=== PATIENT | female | born 1985 | race Caucasian/White ===

== ENCOUNTER 2023-08-19 06:32 | Emergency (ER) | payer SELFPAY ==
--- OUTSIDE RECORDS SUMMARY | 2023-08-19 06:35 | XMS REPORT | Continuity of Care Document ---
:1985 Author Organization [facility] t Address [address] [place] [address] [place] [address] Care Team Providers Name Role Phone Pcp, Patient Does Not Have A Primary Care Physician [phone] MAZIN GLYNN Attending Clinician Unavailable MAZIN GLYNN Attending Clinician Unavailable [email or web address] Attending Clinician Unavailable KIRSTIE FOWLER Attending Clinician Unavailable Doctor Unassigned, [place] Attending Clinician Unavailable Lab, Ang - Db Attending Clinician Unavailable Nurse, [facility] Attending Clinician Unavailable Unknown, Attending Attending Clinician Unavailable UNKNOWN, ATTENDING Attending Clinician Unavailable Margaret Leon RN Attending Clinician Unavailable [email or web address] Admitting Clinician Unavailable Payers Payer Name Policy Type Policy Number Effective Date Expiration Date S [id number] SHARED SERVICE 00:00:00 Problems This patient has no known problems. Allergies, Adverse Reactions, Alerts Allergy Allergy Status Severity Reaction(s) Onset Inactive Treating Comm ents Source Name Type Date Date Clinician PENICILL DRUG Active Anaphylaxis Uni vers IN INGREDI 5-16 ity of 00:00: [address] Penicill Propensi Active Swelling Univ ers in ty to 5-16 ity of adverse 00:00: [place] reaction [address] [place] [address] s [place] NO KNOWN Drug Active Univers ALLERGIE Class ity of [facility] Social History Social Habit Start Date Stop Date Quantity Comments Source History of tobacco Cigarette Smoker University [facility] Sexual orientation Univer sity [facility] Exposure to 2023-01-28 2023-02-07 Not sure [facility] SARS-CoV-2 (event) 00:00:00 07:54:00 [facility] Cigarettes smoked 2023-02-07 2023-02-07 Univers ity of current (pack per 00:00:00 00:00:00 [facility] ) - Reported Branch Cigarette 2023-02-07 2023-02-07 University of pack-years 00:00:00 00:00:00 [facility] Tobacco use and 2023-02-07 2023-02-07 Smokeless Universit y of exposure 00:00:00 00:00:00 tobacco non-user [facility] dical [place] Alcohol intake 2023-02-07 2023-02-07 .86 /d University of 00:00:00 00:00:00 [facility] History of Social 2023-02-07 2023-02-07 Univers ity of function 00:00:00 00:00:00 [facility] Sex [birth year] At [birth year] Universit y of 00:00:00 00:00:00 [facility] Smoking Status Start Date Stop Date Source Tobacco smoking [facility] xa consumption unknown Medical Bran ch Ex-smoker 2023-02-07 00:00:00 2023-02-07 [place] 00:00:00 [facility] Medications This patient has no known medications. Vital Signs Vital Name Observation Time Observation Value Comments Source Systolic blood 2023-02-07 13:08:00 112 mm[Hg] Univer sity of pressure [facility] Diastolic blood 2023-02-07 13:08:00 74 mm[Hg] [facility] Heart rate 2023-02-07 13:08:00 83 /min [facility] Body temperature 2023-02-07 13:08:00 36.61 [place] [facility] Respiratory rate 2023-02-07 13:08:00 17 /min [facility] Body height 2023-02-07 13:08:00 [facility].7 [facility] Body weight 2023-02-07 13:08:00 90.311 kg [facility] BMI 2023-02-07 13:08:00 30.27 kg/m2 [facility] Procedures Procedure Date / Time Performed Performing Clinician Sourc e ASSIGNMENT OF BENEFITS 2020-09-19 18:16:59 Doctor Unassigned, No [facility] Encounters Start End Encounter Admission Attending Care Care Encounter Source Date/Time Date/Time Type Type Clinicians Facility Department ID 2024-02-08 2024-02-08 Outpatient R MAZIN GLYNN [facility] B [id number] Univers 08:00:00 08:00:00 MAZIN GLYNN [facility] 2023-07-19 2023-07-19 Outpatient [email or web address] PRIV PRIV [id number] [facility] 00:00:00 00:00:00 [email or web address] [id number] Medic la 2023-02-21 2023-02-21 Patient Doctor JAKOB [id number] Univers 00:00:00 00:00:00 Secure Msg Unassigned, MARLENY [id number] [facility] [id number] [place] [phone] [facility] [address] 2023-02-10 2023-02-10 Telephone Gretta [facility] [id number] Univers 00:00:00 00:00:00 Mazin [place] [id number] it y of [place] [id number] [id number] [facility] [address] 2023-02-08 2023-02-08 Outpatient R MAZIN GLYNN [facility] B [id number] Univers 07:30:00 08:02:03 MAZIN GLYNN [facility] 2023-02-08 2023-02-08 Family Resource Management Specialist Lab, Ang - Db [facility] [id number] Univers 07:30:00 07:45:00 Visit Mazin Glynn [facility] [id number] 0 ity of [place] [id number] [place] SMITHA?BLEA [phone] [address] MEDICAL OFFICE BUILDING 2023-02-07 2023-02-07 Family Resource Management Specialist Lab, Ang - Db [facility] [id number] Univers 09:00:00 09:13:52 Visit SherylMazin orellana [facility] [id number] 0 ity of [place] [id number] [place] SMITHA?BLEA [id number] Ct dical [address] OFFICE [facility] 2023-02-07 2023-02-07 Outpatient R SHERYLSOFIA ORELLANAFITO [facility] B [id number] Univers 08:00:00 08:24:00 GRETTA MAZIN [facility] 2023-02-07 2023-02-07 Office [facility] [id number] Univers 08:00:00 08:24:00 Visit Mazin [place] [id number] it y of WOMEN'S [id number] [place] [facility] [id number] [facility] 134 [place] 2023-01-26 2023-01-26 Outpatient R SHERYLIMAN MAZIN [facility] B [id number] Univers 08:00:00 08:00:00 CRUZBOBBI MAZIN [facility] 2020-09-21 2020-09-21 Patient Doctor JAKOB [id number] Univers 00:00:00 00:00:00 Secure Msg Unassigned, MARLENY [id number] ity of [place] [facility] [id number] [place] [id number] [facility] [address] 2020-09-19 2020-09-19 Nurse Nurse, [facility] 1.2.840.114 [id number] Univers 12:44:42 17:31:42 Visit Unknown, Attending [place] [id number] ity of [place] 4.2.7.2.686 [place] [id number] [facility] [address] 2020-09-19 2020-09-19 Outpatient R UNKNOWN, [facility] [id number] Univers 13:15:00 13:15:00 ATTENDING ity [facility] 2020-09-19 2020-09-19 Outpatient R UNKNOWN, [facility] [id number] Univers 13:00:00 13:00:00 ATTENDING ity [facility] 2020-09-19 2020-09-19 Orders Doctor JAKOB 1.2.840.114 [id number] Univers 00:00:00 00:00:00 Only Unassigned, MARLENY [id number] ity of [place] [facility] 4.2.7.2.686 [place] [phone] [facility] [address] Branch 2020-09-19 2020-09-19 Telephone JAKOB Leon [id number] Univers 00:00:00 00:00:00 Margaret FARMER [id number] it y of HOSPITAL 4.2.7.2.686 [place] [id number] [facility] [address] 2020-09-19 2020-09-19 Letter Doctor JAKOB [id number] [id number] Univers 00:00:00 00:00:00 (Out) Unassigned, MARLENY [id number] ity of [place] [facility]OSPITAL 4.2.7.2.686 [place] [phone] [facility] [address] Results This patient has no known results.
--- NOTE | 2023-08-19 06:48 | EDPHYS ---
Physician Documentation [facility] Name: Giovana Edward Age: 38 yrs Sex: Female : 1985 Arrival Date: 08/19/2023 Time: 06:32 Bed 14 Private MD: ED Physician Rojelio Avilez HPI: 08/19 06:51 This 38 yrs old Female presents to ER via Ambulatory with complaints of Sore Throat. rt 06:51 Patient presents to the ED with 2 days of sore throat. Denies any difficulty rt swallowing. Denies significant cough. Does report a fever, body aches. Denies other acute complaints at this time, symptoms are moderate severity, no other aggravating or elevating factors.. 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 Flu vaccine is not up to date. - Social history:: Smoking status: Reported history of juuling and/or vaping. - Family history:: not pertinent. ROS: 06:51 Cardiovascular: Negative for chest pain, palpitations, and edema, Respiratory: Negative rt for shortness of breath, cough, wheezing, and pleuritic chest pain, Abdomen/GI: Negative for abdominal pain, nausea, vomiting, diarrhea, and constipation, Skin: Negative for injury, rash, and discoloration, Neuro: Negative for headache, weakness, numbness, tingling, and seizure, 06:51 Constitutional: Positive for body aches, fever, 06:51 ENT: Positive for sore throat, Negative for rhinorrhea, Exam: 06:51 Constitutional: This is a well developed, well nourished patient who is awake, alert, rt and in no acute distress. Head/Face: Normocephalic, atraumatic. Chest/axilla: Normal chest wall appearance and motion. Nontender with no deformity. No lesions are appreciated. Cardiovascular: Regular rate and rhythm with a normal S1 and S2. No gallops, murmurs, or rubs. Normal PMI, no JVD. No pulse deficits. Respiratory: Lungs have equal breath sounds bilaterally, clear to auscultation and percussion. No rales, rhonchi or wheezes noted. No increased work of breathing, no retractions or nasal flaring. Abdomen/GI: Soft, non-tender, with normal bowel sounds. No distension or tympany. No guarding or rebound. No evidence of tenderness throughout. Skin: Warm, dry with normal turgor. Normal color with no rashes, no lesions, and no evidence of cellulitis. MS/ Extremity: Pulses equal, no cyanosis. Neurovascular intact. Full, normal range of motion. Neuro: Awake and alert, GCS 15, oriented to person, place, time, and situation. Cranial nerves II-XII grossly intact. Motor strength 5/5 in all extremities. Sensory grossly intact. Cerebellar exam normal. Normal gait. 06:51 ENT: Posterior pharyngeal erythema with 2+ tonsils, uvula is midline. Vital Signs: 06:43 BP 117 / 76; Pulse 102; Resp 20; Temp 99.1; Pulse Ox 98% ; Weight 86.18 kg; Height 5 vc1 ft. 8 in. ; Pain 7/10; 06:43 Body Mass Index 28.89 (86.18 kg, 172.72 cm) vc1 06:43 Pain Scale: Adult vc1 MDM: 06:47 Patient medically screened. rt 06:51 Differential diagnosis: Strep pharyngitis, RPA, FINANCE BUSINESS PARTNER, viral syndrome. Data reviewed: rt vital signs, nurses notes. Test considered but Not performed: Other Details Uvula is midline, tonsils are symmetrical, very low suspicion for peritonsillar abscess, do not suspect retropharyngeal abscess, CT scan is not indicated. Vital signs are stable, after discussion with the patient, will forego testing and treat for strep pharyngitis empirically given clinical presentation and physical exam findings.. Counseling: I had a detailed discussion with the patient and/or guardian regarding the historical points, exam findings, and any diagnostic results supporting the discharge/admit diagnosis, the need for outpatient follow up, to return to the emergency department if symptoms worsen or persist or if there are any questions or concerns that arise at home. Administered Medications: No medications were administered Disposition Summary: 08/19/23 06:48 Discharge Ordered Notes: Location: Home rt Problem: new rt Symptoms: are unchanged rt Condition: Stable rt Diagnosis - Streptococcal tonsillitis rt Followup: rt - With: Private Physician - When: 5 - 6 days - Reason: Discharge Instructions: - Discharge Summary Sheet rt - Tonsillitis rt Forms: - Work release form eb - Medication Reconciliation Form rt - Thank You Letter rt - Antibiotic Education rt - Prescription Opioid Use rt - Patient Portal Instructions rt - Leadership Thank You Letter rt Prescriptions: - Clindamycin HCl 300 mg Oral Capsule - take 1 capsule ORAL route every 6 hours for 10 days; 40 capsule; Refills: 0, rt Product Selection Permitted Signatures: Klaudia Harkins RN RN vc1 Rojelio Avilez MD MD rt
--- NOTE | 2023-08-19 06:48 | ER ---
Nurse's Notes [facility] Name: Giovana Edward Age: 38 yrs Sex: Female : 1985 Arrival Date: 08/19/2023 Time: 06:32 Bed 14 Private MD: Diagnosis: Streptococcal tonsillitis Presentation: 08/19 06:43 Chief complaint: Patient states: I have fever chills, body aches since yesterday. I vc1 think I have strep. Coronavirus screen: Vaccine status: Patient reports being unvaccinated. Client denies travel out of the [place] in the last 14 days. fatigue, fever, muscle pain, sore throat, Client presents with at least one sign or symptom that may indicate coronavirus-19. Ebola Screen: Patient negative for fever greater than or equal to 101.5 degrees Fahrenheit, and additional compatible Ebola Virus Disease symptoms Patient denies exposure to infectious person. Patient denies travel to an Ebola-affected area in the 21 days before illness onset. No symptoms or risks identified at this time. Initial Sepsis Screen: Does the patient meet any 2 criteria? HR > 90 bpm. No. Patient's initial sepsis screen is negative. Does the patient have a suspected source of infection? No. Patient's initial sepsis screen is negative. Risk Assessment: Do you want to hurt yourself or someone else? Patient reports no desire to harm self or others. Onset of symptoms was August 18, 2023. 06:43 Method Of Arrival: Ambulatory vc1 06:43 Acuity: DINA 4 vc1 Triage Assessment: 06:51 General: Appears in no apparent distress. uncomfortable, Behavior is calm, cooperative, vc1 appropriate for age. Pain: Complains of pain in throat and generalized body aches Pain currently is 7 out of 10 on a pain scale. EENT: Reports pain when swallowing. Neuro: No deficits noted. Cardiovascular: No deficits noted. Respiratory: Airway is patent Respiratory effort is even, unlabored, Respiratory pattern is regular, symmetrical. GI: No deficits noted. No signs and/or symptoms were reported involving the gastrointestinal system. : No deficits noted. No signs and/or symptoms were reported regarding the genitourinary system. Derm: Skin temperature is warm. Musculoskeletal: No deficits noted. No signs and/or symptoms reported regarding the musculoskeletal system. 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 Flu vaccine is not up to date. - Social history:: Smoking status: Reported history of juuling and/or vaping. - Family history:: not pertinent. Screenin:49 [facility] ED Fall Risk Assessment (Adult) History of falling in the last 3 months, vc1 including since admission No falls in past 3 months (0 pts) Confusion or Disorientation No (0 pts) Intoxicated or Sedated No (0 pts) Impaired Gait No (0 pts) Mobility Assist Device Used No (0 pt) Altered Elimination No (0 pt) Score/Fall Risk Level 0 - 2 = Low Risk Oriented to surroundings, Maintained a safe environment, Educated pt \T\ family on fall prevention, incl call for assistance when getting out of bed. Abuse screen: Denies threats or abuse. Nutritional screening: No deficits noted. Tuberculosis screening: No symptoms or risk factors identified. Assessment: 06:50 Pain: Complains of pain in throat and generalized body aches. Respiratory: Airway is vc1 patent Respiratory effort is even, unlabored, Breath sounds are clear. EENT: Throat has patchy exudate Reports pain when swallowing. Vital Signs: 06:43 BP 117 / 76; Pulse 102; Resp 20; Temp 99.1; Pulse Ox 98% ; Weight 86.18 kg; Height 5 vc1 ft. 8 in. ; Pain 7/10; 06:43 Body Mass Index 28.89 (86.18 kg, 172.72 cm) vc1 06:43 Pain Scale: Adult vc1 ED Course: 06:34 Patient arrived in ED. [id number] 06:41 Rojelio Avilez MD is Attending Physician. rt 06:47 Triage completed. vc1 06:49 Arm band placed on left wrist. vc1 06:51 Patient has correct armband on for positive identification. Bed in low position. Call vc1 light in reach. Pulse ox on. NIBP on. 06:53 No provider procedures requiring assistance completed. Patient did not have IV access vc1 during this emergency room visit. 06:56 Provided Education on: medication administration . ha1 Administered Medications: No medications were administered Medication: 06:51 VIS not applicable for this client. vc1 Outcome: 06:48 Discharge ordered by . rt 06:55 Discharged to home ambulatory, ha1 06:55 Condition: stable 06:55 Discharge instructions given to patient, Instructed on discharge instructions, follow up and referral plans. medication usage, Demonstrated understanding of instructions, follow-up care, medications, Prescriptions given X 1, 06:56 Patient left the ED. ha1 Signatures: Shira [id number] Klaudia Harkins, RN RN vc1 Flor Burdick RN RN ha1 Rojelio Avilez MD MD rt
[2023-08-19 07:01] VITALS: BP 117/76; TEMP 99.1; O2SAT 98
== END 2023-08-19 06:56 | disposition home or self-care (01) ==
LOC: ER 06:32
DX: J03.00 Acute streptococcal tonsillitis, unspecified (principal)
CPT/HCPCS: 99283